=== PATIENT | male | born 1965 | race African-American/Black ===

== ENCOUNTER → 2018-05-10 | Outpatient (CLI) | payer BC ==
--- NOTE | 2018-05-10 10:28 | RAD ---
RS Compliance Statement: One or more of the following individualized dose reduction techniques were utilized for this examination: 1. Automated exposure control 2. Adjustment of the mA and/or kV according to patient size 3. Use of iterative reconstruction technique CT head and maxillofacial without contrast 05/10/2018 9:30 AM INDICATION: Headache COMPARISON: None available TECHNIQUE: Multiple axial CT images of the head were obtained from skull base through the vertex without intravenous contrast. Multiple axial CT images of the maxillofacial structures were obtained without intravenous contrast. Coronal and sagittal reformats are provided. FINDINGS: Head: Ventricles, sulci and basal cisterns are within normal limits. There is no hydrocephalus. Ramirez-white matter differentiation is normal. There is no acute intracranial hemorrhage. There is no mass, mass effect or midline shift. Posterior fossa is normal in appearance. There is mild mucosal thickening involving the right maxillary sinus. There is complete opacification of the left sphenoid sinus and lateral recess of the left sphenoid sinus. There is associated wall thickening as may be seen in setting of a mucocele. Ostiomeatal units are widely patent. There may be an accessory ostia on the left. Osseous orbits are intact. Globes are spherical and contour. No evidence for lens dislocation. No intraconal or extraconal mass is visualized. The nasal septum is minimally deviated to the right anteriorly. Temporomandibular joints appear well aligned. Visualized portions of the maxilla appear intact. IMPRESSION: No acute intracranial hemorrhage. There is complete desiccation of the left sphenoid sinus including the lateral recess with osseous remodeling/thickening of the nunez of the sinus. Findings may be seen in setting of a mucocele. Electronically signed by: Zoila Faulkner MD (05/10/2018 10:25 AM) [facility]
== END | disposition home or self-care (01) ==
LOC: CT 09:14
PROVIDERS: ATTEND Nurse Practitioner Family
DX: R51 Headache (principal)
CPT/HCPCS: 70450; 70486

== ENCOUNTER → 2021-03-19 | Outpatient (CLI) | payer BC ==
--- NOTE | 2021-03-19 18:16 | RAD ---
MR#: [id number] Date of Study: 03/19/2021 Ordering Physician: CJ GILMORE, Referring Physician: CJ GILMORE, Tech: Delgado Bazan MBA, RDMS, RVT, RDCS, RTR APPROVED REPORT Patient Location : OUT-PATIENT Indications venous insufficiency Findings The right great saphenous vein measures 6.9 mm and the left great saphenous vein measures approximate ly 8 mm. Color Doppler and spectral imaging of the bilateral greater saphenous veins does not reveal any obvious evidence of reflux. The bilateral lesser saphenous veins also did not reveal any evidence of reflux. Critical Notification Critical Value: No <Conclusion> 1. Negative for reflux in the bilateral greater and lesser saphenous veins. Signed by : Alfred Woods, Electronically Approved : 03/19/2021 18:16:20
--- NOTE | 2021-03-20 11:36 | CARD ---
MR#: [id number] Date of Study: 03/19/2021 Ordering Physician: CJ GILMORE, Referring Physician: CJ GILMORE, Tech: Violeta Garcia, [facility] APPROVED REPORT EXAM: Two-dimensional and M-mode echocardiogram with Doppler and color Doppler. Other Information Quality : AverageHR: 78bpm INDICATION Palpitations 2D DIMENSIONS RVDd3.6 (2.9-3.5cm)Left Atrium(2D)3.7 (1.6-4.0cm) IVSd1.3 (0.7-1.1cm)Aortic Root(2D)3.4 (2.0-3.7cm) LVDd5.3 (3.9-5.9cm)LVOT Diameter2.0 (1.8-2.4cm) PWd1.3 (0.7-1.1cm)LVDs3.6 (2.5-4.0cm) FS (%) 33.2 %SV84.4 ml Aortic Valve AoV Peak Alexis.140.2cm/sAoV VTI26.5cm AO Peak GR.7.9mmHgLVOT Peak Alexis.124.2cm/s LVOT VTI 24.27cmAO Mean GR.4mmHg MAKENNA (VMAX)1.94ap0QBS (VTI)2.87cm2 Mitral Valve MV E Hbdonsbh66.8cm/sMV DECEL BDVV399ml MV A Sjaislib30.6cm/sMV ZPE74by E/A Ratio1.4MVA (PHT)3.50cm2 TDI E/Lateral E'10.0E/Medial E'10.3 Pulmonary Valve PV Peak Uwjtbssr12.6cm/sPV Peak Grad.4mmHg Tricuspid Valve TR P. Jhhmiohd471em/sRAP SBBASPXV8ciTv TR Peak Gr.37vtUmZATH08obPe Pulmonary Vein S1 Ieignkvx79.1cm/sD2 Nhbshwns88.6cm/s PVa [id number] LEFT VENTRICLE The left ventricle is normal size. There is normal left ventricular wall thickness. The left ventricu lar systolic function is normal. LV ejection fraction of 55 to 60%. There is normal LV segmental wall motion. Transmitral Doppler flow pattern is Grade II-pseudonormal filling dynamics. RIGHT VENTRICLE The right ventricle is normal size. There is normal right ventricular wall thickness. The right ventr icular systolic function is normal. ATRIA The left atrium size is normal. The right atrium size is normal. AORTIC VALVE The aortic valve is normal in structure and function. Doppler and Color Flow revealed trace aortic re gurgitation. There is no significant aortic valvular stenosis. Calculated aortic valve area is 2.86 c m2 with maximum pressure gradient of 10 mmHg and mean pressure gradient of 6 mmHg. MITRAL VALVE The mitral valve is normal in structure and function. There is no evidence of mitral valve prolapse. There is no mitral valve stenosis. Doppler and Color Flow revealed no mitral valve regurgitation note d. TRICUSPID VALVE The tricuspid valve is normal in structure and function. Doppler and Color Flow revealed trace tricus pid regurgitation with an estimated PAP of 28 mmHg. There is no tricuspid valve stenosis. PULMONIC VALVE The pulmonic valve is not well visualized. Doppler and Color Flow revealed trace pulmonic valvular re gurgitation. GREAT VESSELS The aortic root is normal in size. The IVC is normal in size and collapses >50% with inspiration. PERICARDIAL EFFUSION There is no evidence of significant pericardial effusion. Critical Notification Critical Value: No <Conclusion> The left ventricle is normal size. The left ventricular systolic function is normal. LV ejection fraction of 55 to 60%. There is normal LV segmental wall motion. Doppler and Color Flow revealed trace aortic regurgitation. There is no significant aortic valvular stenosis. Doppler and Color Flow revealed no mitral valve regurgitation noted. Doppler and Color Flow revealed trace tricuspid regurgitation with an estimated PAP of 28 mmHg. Signed by : Max Zafar MD Electronically Approved : 03/20/2021 11:35:45
== END ==
LOC: US 13:56
PROVIDERS: ATTEND Internal Medicine Cardiovascular Disease
DX: I87.2 Venous insufficiency (chronic) (peripheral) (principal); R00.2 Palpitations
CPT/HCPCS: 93306; 93970

== ENCOUNTER → 2021-08-04 | Outpatient (CLI) | payer BC ==
--- NOTE | 2021-08-05 12:43 | KCIC ---
EXAM: XR BILAT FEET 3 VIEWS 08/04/2021 2:18 PM CLINICAL INDICATION: Bilateral foot pain since COMPARISON: None TECHNIQUE: AP, oblique, and lateral views of the right and left foot FINDINGS: Left foot: No acute fracture. Alignment is normal. Joint spaces are maintained. Small plantar calcane al enthesophyte. There is no soft tissue abnormality. Right foot: No acute fracture. Alignment is normal. Joint spaces are maintained. There is a dystrophi c calcification in the distal Achilles tendon at the calcaneal attachment. Minimal plantar calcaneal enthesophyte. IMPRESSION: No acute osseous abnormality. Electronically signed by: Grace Grajeda MD (08/05/2021 12:40 PM) [id number]
== END ==
LOC: KCIC 14:15
PROVIDERS: ATTEND Family Medicine
DX: M77.32 Calcaneal spur, left foot (principal); M77.31 Calcaneal spur, right foot; M25.871 Other specified joint disorders, right ankle and foot
CPT/HCPCS: 73630-50